=== PATIENT | female | born 1960 | race Caucasian/White ===

== ENCOUNTER 2016-12-14 09:02 | Day surgery (SDC) | payer OTHER ==
[2016-12-10 10:45] VITALS: BMI 25.2
[~2016-12-14 09:02] MED LIST: LACTATED RINGERS SOLUTION 1,000 ML IV SCH; ONDANSETRON 4 MG/2 ML VIAL IVPUSH PRN; PROMETHAZINE HCL 25 MG/1 ML VIAL IVPUSH PRN; oxyCODONE HCL 5 MG TABLET PO PRN
[2016-12-14] MEDS ORDERED: PROPOFOL 20 ML ONE ×3 (10:09)
[2016-12-14] MEDS ORDERED: ROPIVACAINE HCL 0.5% 30ML VIAL ONE (10:11)
[2016-12-14] MEDS ORDERED: MIDAZOLAM HCL 2 MG/2 ML SINGLE DOSE VIAL ONE (10:11)
[2016-12-14] MEDS ORDERED: ONDANSETRON 4 MG/2 ML VIAL ONE (10:12)
[2016-12-14] MEDS ORDERED: DEXAMETHASONE SOD PHOSPHATE 4 MG/1 ML VIAL ONE (10:12)
[2016-12-14] MEDS ORDERED: KETOROLAC TROMETHAMINE 30 MG/1 ML VIAL ONE (10:13)
[2016-12-14] MEDS ORDERED: ceFAZolin SODIUM 1 GM VIAL ONE (10:13)
[2016-12-14 14:03] VITALS: TEMP 98.2
[2016-12-14 14:38] VITALS: BP 110/62; PULSE 72
--- NOTE | 2016-12-15 14:44 | OP ---
DATE OF OPERATION: DATE OF DICTATION: 12/14/2016 PREOPERATIVE DIAGNOSIS: Impingement with tearing of the right shoulder rotator cuff. POSTOPERATIVE DIAGNOSIS: Tear of the rotator cuff, tearing of the glenoid labrum, hypertrophic synovium, inflamed bursal tissue, impingement from the lateral clavicle and articular surface, impingement from the coracoacromial ligament and acromion. PROCEDURE PERFORMED: Operative arthroscopy of the right shoulder with decompression of the right shoulder of subacromial space, partial acromioplasty with release and resection of coracoacromial ligament, lysis and resection of adhesions, lateral distal claviculectomy including the articular surface, partial synovectomy with extensive debridement, debridement of inflamed bursal tissue, debridement of rotator cuff tear, partial glenoid labrum resection. SURGEON: Andreia Cerda M.D. PROCESS CONTROL TECH: VINCENZO Waddell ANESTHESIOLOGIST: Varghese Sears MD ANESTHESIA: Regional anesthesia. DESCRIPTION OF PROCEDURE: The procedure consisted of the patient being brought in the operating room and gently transfered from the stretcher to the OR table with all bony prominences well padded. The right shoulder was prepared and draped in the sterile fashion. Patient was given intravenous antibiotics, and copious irrigation throughout the procedure to minimize risk of infection. A complete risks, benefits discussion was conducted with the patient which included but not limited to infection, bleeding, , paralysis, increased pain, need for re-surgery. Patient asked questions, understood the procedure, and desired to proceed with surgical treatment. Appropriate timeout, indicating correct side of surgery, surgeon, anesthesiologist was conducted. Following this, the patient was placed in the right side up lateral decubitus position with all bony prominences well padded. An axillary roll had been placed. Great care was taken to protect the facial features and particularly the eyes throughout the procedure. Gentle traction, approximately 8 pounds, was applied across the glenohumeral joint using a traction device. Appropriate sterile preparation draping of the right shoulder was performed. Bony landmarks were identified, anterior, posterior and lateral portals were used with the arthroscope and arthroscopic instruments. The glenohumeral joint was evaluated. There was noted to be hypertrophic synovium in the glenohumeral joint, and an extensive partial synovectomy was performed. Adhesions were with the joint, which were lysed and resected to allow expansion of the joint. Biceps tendon, middle glenohumeral ligament were found to be intact. The rotator cuff on the articular side was found to have a tear, which was probed and found to be partial thickness, and this was debrided using shaver and radiofrequency wand. There was noted to be tearing of the glenoid labrum, and a partial glenoid labrum resection was performed. Our attention was then turned to the subacromial space. There was noted to be inflamed bursal tissue and extensive partial resection was performed. Rotator cuff on the bursal side was found to be intact. Acromion was found to have an edge of bone impingement upon the rotator cuff, and a wedge of bone thick anteriorly then posteriorly was resected from the acromion. Coracoacromial ligament was also creating impingement; this was released and resected. The lateral clavicle including the articular portion was also creating impingement and this was debrided. A high speed bur and shaver was used to resect the lateral clavicle including the articular portion. Following this, the wounds were copiously irrigated with sterile saline irrigant and were closed with 4-0 undyed Vicryl followed by Steri-Strips, Xeroform, 4x4s combine elastoplast and a shoulder immobilizer. The patient was then awoke from anesthesia without incident and transferred from the operating room to the recovery room in satisfactory condition. There are no intraoperative complications. ANDREIA CERDA M.D. [id number] MTDD
== END 2016-12-14 14:30 | disposition home or self-care (01) ==
LOC: FASU 09:02
PROVIDERS: ATTEND Orthopaedic Surgery
PROC: 0RNJ4ZZ Release Right Shoulder Joint, Percutaneous Endoscopic Approach (ICD-10-PCS; 2016-12-14)
PROC: 0PB94ZZ Excision of Right Clavicle, Percutaneous Endoscopic Approach (ICD-10-PCS; 2016-12-14)
PROC: 0RBJ4ZZ Excision of Right Shoulder Joint, Percutaneous Endoscopic Approach (ICD-10-PCS; 2016-12-14)
PROC: 0LB14ZZ Excision of Right Shoulder Tendon, Percutaneous Endoscopic Approach (ICD-10-PCS; principal; 2016-12-14 10:30)
DX: M75.101 Unspecified rotator cuff tear or rupture of right shoulder, not specified as traumatic (principal); S46.811A Strain of other muscles, fascia and tendons at shoulder and upper arm level, right arm, initial encounter; X58.XXXA Exposure to other specified factors, initial encounter; Y93.9 Activity, unspecified; Y92.9 Unspecified place or not applicable; M67.211 Synovial hypertrophy, not elsewhere classified, right shoulder; M75.41 Impingement syndrome of right shoulder
CPT/HCPCS: 94760